=== PATIENT | male | born 1970 | race Caucasian/White ===

== ENCOUNTER 2018-10-22 08:41 | Outpatient (CLI) | payer OTHER, SELFPAY ==
[2018-10-22 09:06] LABS: HCT 50.3 % (40.0-50.0); HGB 17.3 g/dL (13.5-17.5); Mean Corp. HGB Concentration 34.4 g/dL (32.0-36.0); Mean Corpuscular Hemoglobin 30.8 pg (27.0-33.0); Mean Corpuscular Volume 89.7 fL (80-95); Mean Platelet Volume 9.2 fL (8.0-11.0); Platelet Count 255 x1000/uL (130-400); RBC 5.61 m/cumm (4.50-6.00); White Blood Cell Count 7.49 k/cumm (4.4-10.8)
[2018-10-22 09:51] LABS: ALT 61 U/L (12-78); AST 31 U/L (15-37); Albumin 4.1 g/dL (3.4-5.0); Alkaline Phosphatase 99 U/L (46-116); Anion Gap 9.4 mmol/L (3-11); BUN 10 mg/dL (7-18); Bilirubin, Total 0.5 mg/dL (0.2-1.0); CO2 27.6 mmol/L (21.0-32.0); CREATININE 0.94 mg/dL (0.70-1.30); Calcium 9.5 mg/dL (8.5-10.1); Chloride 102 mmol/L (98-107); Cholesterol 251 mg/dL (50-200); Glucose 117 mg/dL (70-100); HDL Cholesterol 48 mg/dL (40-60); LDL CHOLESTEROL 183 mg/dL (<100); Potassium 4.6 mmol/L (3.5-5.1); Sodium 139 mmol/L (136-145); Total Protein 8.3 g/dL (6.4-8.2); Triglyceride 154 mg/dL (30-150)
== END 2018-10-22 09:01 ==
PROVIDERS: PCP Nurse Practitioner; Visit Provider Nurse Practitioner
DX: E66.9 Obesity, unspecified (principal); R03.0 Elevated blood-pressure reading, without diagnosis of hypertension; Z00.00 Encounter for general adult medical examination without abnormal findings
CPT/HCPCS: 36415; 80053; 80061; 83721; 85027

== ENCOUNTER 2019-12-08 04:27 | Outpatient (CLI) | payer OTHER, SELFPAY ==
[2019-12-08 17:25] LABS: Calculated LDL 169 mg/dL (<100); Cholesterol 237 mg/dL (<200); HDL Cholesterol 43 mg/dL (40-60); Triglyceride 125 mg/dL (<150)
== END 2019-12-08 04:47 ==
PROVIDERS: PCP Nurse Practitioner; Visit Provider Nurse Practitioner
DX: E78.00 Pure hypercholesterolemia, unspecified (principal)
CPT/HCPCS: 36415; 80061

== ENCOUNTER 2020-10-01 03:32 | Outpatient (CLI) | payer BC, SELFPAY ==
[2020-10-02 14:17] LABS: COVID-19 RT-PCR UVMMC Result Negative (Negative)
== END 2020-10-01 03:33 | disposition home or self-care (01) ==
LOC: LBO 03:32
PROVIDERS: PCP Nurse Practitioner; Visit Provider Nurse Practitioner
DX: Z20.828 Contact with and (suspected) exposure to other viral communicable diseases (principal)
CPT/HCPCS: U0003

== ENCOUNTER 2021-05-30 02:35 | Outpatient (CLI) | payer BC, SELFPAY ==
[2021-05-30 09:36] LABS: HCT 46.7 % (40.0-50.0); HGB 15.8 g/dL (13.5-17.5); MCH 30.7 pg (27.0-33.0); MCHC 33.8 % (32.0-36.0); MCV 90.9 fL (80-95); Platelet Count 247 10^3/uL (130-400); RBC 5.14 10^6/uL (4.36-5.78); RDW 11.5 % (11.8-14.1); RDW-SD 38.6 fL; WBC 6.63 10^3/uL (4.4-10.8)
[2021-05-30 10:32] LABS: ALT 51 U/L (16-63); AST 23 U/L (15-37); Alkaline Phosphatase 90 U/L (46-116); Anion Gap 10.7 mmol/L (3-11); BUN 13 mg/dL (7-18); Bilirubin, Total 0.4 mg/dL (0.2-1.0); CO2 25.3 mmol/L (21.0-32.0); CREATININE 0.7 mg/dL (0.70-1.30); Calculated LDL 171 mg/dL (<100); Chloride 103 mmol/L (98-107); Cholesterol 237 mg/dL (<200); Glucose 115 mg/dL (74-106); HDL Cholesterol 43 mg/dL (40-60); Potassium 4.4 mmol/L (3.5-5.1); Sodium 139 mmol/L (136-145); Total Protein 7.7 g/dL (6.4-8.2); Triglyceride 116 mg/dL (<150)
[2021-05-30 10:48] LABS: Hemoglobin A1C 5.7 % (<5.7)
[2021-05-31 13:22] LABS: HIV-1/2 Ag & Ab Screen Negative (Negative); Hepatitis C Ab w Rflx HCV PCR Negative (Negative)
== END 2021-05-30 02:36 | disposition home or self-care (01) ==
LOC: LBO 02:35
PROVIDERS: PCP Nurse Practitioner; Visit Provider Nurse Practitioner
DX: E66.9 Obesity, unspecified (principal); E78.00 Pure hypercholesterolemia, unspecified; I10 Essential (primary) hypertension; R73.01 Impaired fasting glucose; Z11.59 Encounter for screening for other viral diseases; E11.9 Type 2 diabetes mellitus without complications; Z11.4 Encounter for screening for human immunodeficiency virus [HIV]
CPT/HCPCS: 36415; 80053; 80061; 85027; 86803; 87389; 83036

== ENCOUNTER 2021-12-20 02:46 | Outpatient (CLI) | payer BC, SELFPAY ==
--- OUTSIDE RECORDS SUMMARY | 2021-12-20 02:49 | XMS_ITS | Encounter Summary ---
:1970 Demographics Home Phone Preferred Language Unknown Marital Status Unknown Confucianism Affiliation Unknown Race Unknown Ethnic Group Unknown Author Organization Address [address] [place] [address] Care Team Providers Name Role Phone Unavailable Primary Care Provider Unavailable Encounter Details Date Type Department Care Team Description 05/30/2021 Lab Requisition [facility] Outr Resulting Lab, Pathology & Laboratory Provider [facility] [address] [place] [address] Social History Tobacco Use Types Packs/Day Years Used Date Never Assessed Sex Assigned at Date Recorded Not on file documented as of this encounter Plan of Treatment Not on filedocumented as of this encounter Procedures Procedure Name Priority Date/Time Associated Diagnosis Comme nts HEPATITIS C AB W Routine 05/30/2021 9:29 EST Resu lts for this REFLEX TO HCV RNA procedure are in BY PCR the results section. documented in this encounter Results HEPATITIS C AB W REFLEX TO HCV RNA BY PCR (05/30/2021 9:29 EST) Pathologist Sig nature Hep C Antibody Negative Negative [facility] Specimen Blood - Venous blood (substance) Performing Organization Address City/State/ZIP Code Phon e Number [facility] [address] [place] [address] SERVICES documented in this encounter Visit Diagnoses Not on filedocumented in this encounter
--- OUTSIDE RECORDS SUMMARY | 2021-12-20 02:49 | XMS_ITS | Encounter Summary ---
:1970 Demographics Home Phone Preferred Language Unknown Marital Status Unknown Hoahaoism Affiliation Unknown Race Unknown Ethnic Group Unknown Author Organization [facility] Address [address] [place] [address] Care Team Providers Name Role Phone Unavailable Primary Care Provider Unavailable Encounter Details Date Type Department Care Team Description 10/01/2020 Lab Requisition [facility] Outr Resulting Lab, Pathology & Laboratory Provider [facility] [address] [place] [address] Social History Tobacco Use Types Packs/Day Years Used Date Never Assessed Sex Assigned at Date Recorded Not on file documented as of this encounter Plan of Treatment Not on filedocumented as of this encounter Procedures Procedure Name Priority Date/Time Associated Diagnosis Comme nts COVID-19 TEST [facility] Today 10/01/2020 9:18 EDT LAB PCR COVID-19 TESTING Routine 10/01/2020 9:18 EDT Resu lts for this procedure are i n the results section. documented in this encounter Results COVID-19 TEST [facility] LAB PCR (10/01/2020 9:18 EDT) Specimen Swab - Entire nasopharynx (body structur e) Performing Organization Address City/State/ZIP Code Phon e Number [facility] [address] [place] [address] SERVICES COVID-19 TESTING (10/01/2020 9:18 EDT) COVID-19 rt-PCR Negative Negative [facility] Result Comment: [facility] This test has not been FDA c leared or approved. This test has been authorized by FDA under an EUA for use by authorized laboratories. This test has been authorized only for detection of nucleic acid fro SERVICES m 2019-nCoV, not for any oth er viruses or pathogens. This test is only authorized for the duration of the declaration that circumstances exist justifying the authorization of emergency use of in vitro d iagnostic tests for detectio n and/or diagnosis of 2019-nCoV under section 564(b)(1) of Act, 21 U.S.C ?? 360bbb-3(b) (1), unless the authorization is terminated or revoked sooner. Negative results do not prec lude 2019-nCoV infection and should not be used as the sole basis for treatment or other patient management decisions. Negative results must be combined with clinical observa tions, patient history, and epidemiological informatio n. Testing was performed using the margareth SARS-CoV-2 assay ([employer] on the Margareth 6800 System Performing Lab [facility] [address] [facility] Lab [facility] SERVICES Specimen Swab Performing Organization Address City/State/ZIP Code Phon e Number [facility] [address] [place] [address] SERVICES documented in this encounter Visit Diagnoses Not on filedocumented in this encounter
--- OUTSIDE RECORDS SUMMARY | 2021-12-20 02:49 | XMS_ITS | Clinical Summary ---
:1970 Demographics Home Phone Preferred Language Unknown Marital Status Unknown Hindu Affiliation Unknown Race Unknown Ethnic Group Unknown Author Organization [facility] Address [address] [place] [address] Care Team Providers Name Role Phone Unavailable Primary Care Provider Unavailable Social History Tobacco Use Types Packs/Day Years Used Date Never Assessed Sex Assigned at Date Recorded Not on file Plan of Treatment Health Maintenance Due Date Last Done Comments COVID-19 Vaccine (1) 1975 Hepatitis C Screen Completed 05/30/2021
[2021-12-20 08:11] LABS: Hemoglobin A1C 5.9 % (<5.7)
[2021-12-20 09:04] LABS: ALT 62 U/L (16-63); AST 40 U/L (15-37); Albumin 3.9 g/dL (3.4-5.0); Alkaline Phosphatase 81 U/L (46-116); Anion Gap 7.2 mmol/L (3-11); BUN 11 mg/dL (7-18); Bilirubin, Total 0.6 mg/dL (0.2-1.0); CO2 29.8 mmol/L (21.0-32.0); CREATININE 0.8 mg/dL (0.70-1.30); Calculated LDL 176 mg/dL (<100); Chloride 103 mmol/L (98-107); Cholesterol 257 mg/dL (<200); Glucose 124 mg/dL (74-106); HDL Cholesterol 44 mg/dL (40-60); Potassium 4.6 mmol/L (3.5-5.1); Sodium 140 mmol/L (136-145); Triglyceride 185 mg/dL (<150)
== END 2021-12-20 02:47 | disposition home or self-care (01) ==
LOC: LBO 02:47
PROVIDERS: PCP Nurse Practitioner; Visit Provider Nurse Practitioner
DX: E78.00 Pure hypercholesterolemia, unspecified (principal); I10 Essential (primary) hypertension; R73.01 Impaired fasting glucose
CPT/HCPCS: 36415; 80053; 80061; 83036

== ENCOUNTER 2022-03-20 16:55 | Outpatient (REF) | payer BC, SELFPAY | END 2022-03-20 16:56 | disposition home or self-care (01) | LOC: LBN 16:55 | PROVIDERS: PCP Nurse Practitioner; Visit Provider Surgery | DX: L08.9 Local infection of the skin and subcutaneous tissue, unspecified; L72.3 Sebaceous cyst | CPT/HCPCS: 87070; 87205 ==

== ENCOUNTER 2022-07-03 04:05 | Outpatient (CLI) | payer BC, SELFPAY ==
[2022-07-03 09:29] LABS: Calculated LDL 127 mg/dL (<100); Cholesterol 196 mg/dL (<200); HDL Cholesterol 49 mg/dL (40-60); Triglyceride 103 mg/dL (<150)
== END 2022-07-03 04:06 | disposition home or self-care (01) ==
LOC: LBO 04:05
PROVIDERS: PCP Nurse Practitioner; Visit Provider Nurse Practitioner
DX: E78.00 Pure hypercholesterolemia, unspecified (principal)
CPT/HCPCS: 36415; 80061

== ENCOUNTER 2023-07-10 09:29 | Day surgery (SDC) | payer BC, SELFPAY ==
--- NOTE | 2023-07-06 15:44 | PDOC.DSDIS_ITS ---
Discharge Plan Disposition Patient Disposition: Home Condition: Good Discharge Details Reason For Visit: colon scope Attending Provider: Emily Copeland Primary Care Provider: Cee Madison Home Meds and New Rx's Prescriptions: Continued atorvastatin 20 mg tablet 20 mg PO QPM Qty: 90 3RF ibuprofen 600 mg tablet 600 mg PO QID PRN (Reason: pain) Rx Instructions: [facility] dated 10/04/19 [facility] acetaminophen 500 mg tablet 1,000 mg PO Q6H PRN Rx Instructions: Per [place] [facility] visit 10/04/19 [facility] Discontinued bisacodyl [Dulcolax (bisacodyl)] 5 mg tablet,delayed release (DR/EC) 5 mg PO ONCE Qty: 4 0RF Rx Instructions: Colonoscopy Bowel Prep- Per Instructions polyethylene glycol 3350 17 gram/dose powder 238 g PO ONCE Qty: 238 0RF Rx Instructions: Colonoscopy Bowel Prep- Per Instructions Discharge Instructions Additional Instructions: DSU Colonoscopy Post- Op Instructions Instructions for Everyone who is given Anesthesia: For your safety, please do the following for the next twenty-four (24) hours: *Do Not operate a motor vehicle (car, truck, motorcycle, etc.) *Do Not drink alcoholic beverages or use any recreational drugs for the first 24 hours or while taking pain medications. The medications in your body may have a reaction that can be dangerous. *Do Not make any important decisions or sign any important papers. Findings: Follow up: 1. No lifting over 20 pounds or strenuous activity for the first 24 hours after your procedure. After 24 hours there are no restrictions on your activity but you may feel fatigued for a few days. 2. After you arrive home you may have a light meal and return to your normal diet as you can tolerate it without feeling sick to your stomach. 3. You may have a bloated, gaseous feeling in your belly (abdomen) after a colonoscopy. Passing gas and belching will help. Walking or lying down on your left side with your knees flexed may relieve the discomfort. Call the office at [phone] (Office) or [phone] (Hospital) right away if you notice any of the following: a.Vomiting of blood or ?coffee ground stools?. b.Rectal bleeding 1Tbsp, blood clots or continuous bleeding. c.Severe belly (abdominal) pain. d.A hard distended belly (abdomen) and an inability to pass gas. 4. Please don?t expect to have a normal BM (bowel movement) for 2-3 days after your procedure. 5. If there are questions regarding the findings of your procedure, please contact your doctor 6. If you are unable to contact your doctor with a problem, contact the hospital at [phone]. 7. Continue all your regular medications unless directed otherwise. I understand the above instructions and have no questions. Signature of Patient or Adult Escort Name of Responsible Adult Escort Signature of Nurse Date/Time Activity:: see above Diet:: see above Discharge Orders Discharge Orders: Discharge Order (Routine); Ordered 07/10/23 Ordered By: Emily Copeland DS: Diagnosis Discharge Diagnosis (1) Pre-diabetes: Status: Acute (2) Soft tissue abscess: Status: Acute (3) Infected sebaceous cyst of skin: Status: Acute (4) Diverticulitis: Status: Chronic (5) IFG (impaired fasting glucose): Status: Chronic (6) Elevated cholesterol: Status: Chronic (7) HTN (hypertension): Status: Chronic (8) Obesity: Status: Chronic (9) Screening for malignant neoplasm of colon performed: Status: Acute Asessment and Plan: The patient is seen and examined after their colonoscopy.? The patient has been able to pass gas.? They are not having abdominal pain.? They have been able to tolerate liquids and a snack.? They do not have any nausea or vomiting.? They are not having any chest pain or shortness of breath.??? They are not having any rectal bleeding. Their vital signs have been stable-see nursing notes. We discussed findings during their colonoscopy, and any biopsies that were done/polyps that were removed. The patient will be sent a letter with any biopsy results, and when to repeat the colonoscopy.-see discharge instructions. Patient was given explicit instructions to follow-up regarding colonoscopy-refer to discharge instructions.? We reviewed resumption of medications. Patient verbalized understanding and discharged in stable and satisfactory condition- See nursing notes.
--- NOTE | 2023-07-09 10:21 | PDOC.DSDIS_ITS ---
Date of service: 07/10/23 Time of Service: 11:25 Discharge Plan Disposition Patient Disposition: Home Condition: Good Discharge Details Reason For Visit: colon scope Attending Provider: Emily Copeland Primary Care Provider: Cee Madison Home Meds and New Rx's Prescriptions: Continued atorvastatin 20 mg tablet 20 mg PO QPM Qty: 90 3RF ibuprofen 600 mg tablet 600 mg PO QID PRN (Reason: pain) Rx Instructions: [facility] dated 10/04/19 [facility] acetaminophen 500 mg tablet 1,000 mg PO Q6H PRN Rx Instructions: Per [facility] ER visit 10/04/19 [facility]gc Discontinued bisacodyl [Dulcolax (bisacodyl)] 5 mg tablet,delayed release (DR/EC) 5 mg PO ONCE Qty: 4 0RF Rx Instructions: Colonoscopy Bowel Prep- Per Instructions polyethylene glycol 3350 17 gram/dose powder 238 g PO ONCE Qty: 238 0RF Rx Instructions: Colonoscopy Bowel Prep- Per Instructions Discharge Instructions Additional Instructions: DSU Colonoscopy Post- Op Instructions Instructions for Everyone who is given Anesthesia: For your safety, please do the following for the next twenty-four (24) hours: *Do Not operate a motor vehicle (car, truck, motorcycle, etc.) *Do Not drink alcoholic beverages or use any recreational drugs for the first 24 hours or while taking pain medications. The medications in your body may have a reaction that can be dangerous. *Do Not make any important decisions or sign any important papers. Findings: -polyps:these are very small. My office will send you a letter in 2 to 3 weeks time with the results of the biopsy and when we want you to repeat the colonoscopy again, most likely 7 years time. -Diverticula: Make sure you are moving your bowels on a regular basis and you are not straining. If you are find you are having issues with constipation/straining, then it is recommended you start a daily fiber supplement such as Metamucil. 1. No lifting over 20 pounds or strenuous activity for the first 24 hours after your procedure. After 24 hours there are no restrictions on your activity but you may feel fatigued for a few days. 2. After you arrive home you may have a light meal and return to your normal diet as you can tolerate it without feeling sick to your stomach. 3. You may have a bloated, gaseous feeling in your belly (abdomen) after a colonoscopy. Passing gas and belching will help. Walking or lying down on your left side with your knees flexed may relieve the discomfort. Call the office at [phone] (Office) or [phone] (Hospital) right away if you notice any of the following: a.Vomiting of blood or ?coffee ground stools?. b.Rectal bleeding 1Tbsp, blood clots or continuous bleeding. c.Severe belly (abdominal) pain. d.A hard distended belly (abdomen) and an inability to pass gas. 4. Please don?t expect to have a normal BM (bowel movement) for 2-3 days after your procedure. 5. If there are questions regarding the findings of your procedure, please contact your doctor 6. If you are unable to contact your doctor with a problem, contact the hospital at [phone]. 7. Continue all your regular medications unless directed otherwise. I understand the above instructions and have no questions. Signature of Patient or Adult Escort Name of Responsible Adult Escort Signature of Nurse Date/Time Activity:: see above Diet:: see above Discharge Orders Discharge Orders: Discharge Order (Routine); Ordered 07/10/23 Ordered By: Emily Copeland DS: Diagnosis Discharge Diagnosis (1) Pre-diabetes: Status: Acute (2) Soft tissue abscess: Status: Acute (3) Infected sebaceous cyst of skin: Status: Acute (4) IFG (impaired fasting glucose): Status: Chronic (5) Elevated cholesterol: Status: Chronic (6) HTN (hypertension): Status: Chronic (7) Obesity: Status: Chronic (8) Screening for malignant neoplasm of colon performed: Status: Acute Asessment and Plan: The patient is seen and examined after their colonoscopy.? The patient has been able to pass gas.? They are not having abdominal pain.? They have been able to tolerate liquids and a snack.? They do not have any nausea or vomiting.? They are not having any chest pain or shortness of breath.??? They are not having any rectal bleeding. Their vital signs have been stable-see nursing notes. We discussed findings during their colonoscopy, and any biopsies that were done/polyps that were removed. The patient will be sent a letter with any biopsy results, and when to repeat the colonoscopy.-see discharge instructions. Patient was given explicit instructions to follow-up regarding colonoscopy-refer to discharge instructions.? We reviewed resumption of medications. Patient verbalized understanding and discharged in stable and satisfactory condition- See nursing notes. (9) Diverticula of colon: Status: Acute (10) Colon polyp: Status: Acute
--- NOTE | 2023-07-09 10:22 | W.COLOREPORT ---
Date of service: 07/10/23 Time of Service: 11:11 Colonoscopy Report Date of procedure: 07/10/23 Pre-op diagnosis general: CRC screen Post-op diagnosis procedure note: other (Diverticula and polyps) Surgeon: Emily Copeland Anesthesia Type: General LMA/ETT Estimated blood loss (mL): 1 Pathology: other Complications: None Disposition: same day Prep: Miralax/Dulcolax Retraction Time: 12 Procedure Description: After informed consent was obtained the patient was taken to the procedure room and placed in a left decubitous position. Monitors were applied and a time out was done. The patients name, date of , procedure, allergies to medications and metal in their body was reviewed. The patient was then sedated. Once sedated and comfortable a rectal exam was done. External exam was normal. Internal exam revealed a normal sphincter tone and no palpable masses. The prostate-without masses. The scope was then introduced and retrofelexed. No internal hemorrhoids were identified. The scope was then advanced to the cecum without difficulty. The TI and appendiceal orifice were identified. The prep was BBPS 2 in all 3 segments for a total of 6. The scope was then slowly retracted over 12 minutes back into the rectum. We removed 2 polyps today. He had a flat .5 cm polyp at 50 cm. This is removed with a cold biopsy forcep. He had a flat 0.5 cm polyp in the rectum, that is removed with a cold biopsy forcep. He has a few small scattered diverticula in the sigmoid colon. There is no signs of active bleeding or infection. The mucosa is pink and healthy with a normal vascular pattern. All specimens are retrieved and no bleeding is noted the scope was removed and the patient was woken up and taken back to Same day surgery in stable condition. The patient tolerated the procedure well and there were no immediate complications. Follow up: The patient should follow up in ~7 years, pathology pending, unless they develop changes in bowel habits or other new gastrointestinal complaints.
[2023-07-10 09:53] VITALS: BP 163/83; PULSE 92; RESP 16; TEMP 36.7; O2SAT 98
[2023-07-10] MEDS: Lactated Ringers 1,000 ML 80 ML IV (09:55)
--- NOTE | 2023-07-10 10:32 | W.ANESPRE ---
General Info Date of Service Date Performed: 07/10/23 Height: 5 ft 5 in Weight: 100.1 kg Body Mass Index (BMI): 36.7 Surgical Procedure: Operation Date: 07/10/23 10:35 Proposed Procedure Side Surgeon leta Copeland, DO Meds Allergies and Home Medications Allergies Allergy/AdvReac Type Severity Reaction Status Date / Time No Known Drug Allergies Allergy Verified 07/10/23 09:41 Home Medication Medication Instructions Recorded acetaminophen 500 mg tablet 1,000 mg PO Q6H PRN 10/05/19 ibuprofen 600 mg tablet 600 mg PO QID PRN pain 10/05/19 atorvastatin 20 mg tablet 20 mg PO QPM #90 tabs 06/30/22 Current Visit Medications: Current Medications Generic Name Dose Route Start Last Admin Trade Name Freq PRN Reason Stop Dose Admin Hyoscyamine Sulfate 0.125 mg 07/10/23 03:42 Hyoscyamine 0.125 Mg Sl/Oral/Chew SL 08/09/23 03:41 DIRECTED PRN Ringer's Solution 1,000 mls @ 80 mls/hr 07/10/23 06:00 07/10/23 09:55 IV 07/10/23 23:59 80 mls/hr INFUSION SHIRLEY Administration IV Miscellaneous Supplies 1 each 07/10/23 06:00 Iv Access IV 07/10/23 23:59 DIRECTED SHIRLEY Ondansetron HCl 4 mg 07/10/23 03:42 Ondansetron 4 Mg/2 Ml Vial IVP 08/09/23 03:41 Q4H PRN PRN Nausea / Vomiting Sodium Chloride 0 ml 07/10/23 06:00 Normal Saline Flush 10 Ml Syr IV 07/10/23 23:59 PRN PRN Sodium Chloride 0 ml 07/10/23 06:00 Normal Saline 10 Ml Vial IJ 07/10/23 23:59 DIRECTED PRN Sterile Water 0 ml 07/10/23 06:00 Water,Injection,Sterile 10 Ml Vial IJ 07/10/23 23:59 DIRECTED PRN PFSH Active Problems Active Problems: Problem Status Onset Code Screening for malignant neoplasm of colon performed Z12. Screening for malignant neoplasm of colon performed Z12.11 Pre-diabetes R73.03 Soft tissue abscess L02.91 Infected sebaceous cyst of skin L72.3, L08.9 Diverticulitis K57.92 IFG (impaired fasting glucose) R73.01 Elevated cholesterol E78.00 HTN (hypertension) I10 Obesity E66.9 Surgical History Surgical History left lower leg fracture (06/22/91) Appendectomy (06/22/82) Tobacco Smoking/Tobacco Use Status: Former Tobacco Use Alcohol Alcohol Intake: never Substance Use Substance use type: does not use Vital Signs and Lab Results Vital Signs Most Recent Vital Signs in EMR: Most Recent Vital Signs Temp Pulse Resp BP Pulse Ox 36.7 C 92 H 16 163/83 H 98 07/10/23 09:53 07/10/23 09:53 07/10/23 09:53 07/10/23 09:53 07/10/23 09:53 Lab Results Blood Type / Crossmatch: No Data to Display Complete Blood Count: No Data to Display Complete Metabolic Panel: No Data to Display Liver Function Panel: No Data to Display Coagulation Panel: No Data to Display Cardiac Panel: No Data to Display Arterial Blood Gas: No Data to Display Venous Blood Gas: No Data to Display Pancreas Panel: No Data to Display Thyroid Panel: No Data to Display Infectious Disease: No Data to Display Blood Cultures: No Data to Display Toxicology Panel: No Data to Display Anesthesia Assessment and Plan Anesthesia History Personal History: No History of Anesthesia Complications Family History: No Family History of Anesthesia Complications Exercise Tolerance Exercise Tolerance: Metabolic Equivalents>4 Pertinent Negatives Pertinent Negatives: No Symptoms of GERD Cardiac & Pulmonary Exam Cardiac Exam: Normal S1/S2 Heart Sounds Pulmonary Exam: Clear Bilateral Breath Sounds Implantable Cardiac Device Does patient have a Pacemaker or an ICD?: No Airway Exam Known Difficult Airway: No Mallampati Class: 2 Mouth Opening: Normal (> 3cm) Thyromental Distance: Greater than 3 cm Neck Range of Motion: Full ROM Neck Circumference: Normal Teeth Condition: Normal Dentition ASA Classification ASA Score: ASA 2 Emergency Case?: No NPO Status NPO Status: NPO Clears >2 hours, Solids >8 hours Anesthesia Plan Resuscitation Status: Full Code Anesthesia Technique: General Anesthesia Airway Planned: Natural Airway Monitors Used: Standard Monitors
[2023-07-10 10:33] VITALS: BMI 36.7
--- NOTE | 2023-07-10 10:50 | BOWEL_PTH ---
PATIENT: [place] Moreno LOC: [facility] U#:[id number] AGE/SX: 52/M ROOM: RE07/10/[address]: Emily Copeland : 1970 BED: DIS: 07/10/2023 SPEC #: [id number] RECD: 07/10/23 12:58 STATUS: [facility] REQ #: [id number] PAZ: 07/10/23 10:[address]: Emily Copeland DEPT: Surgical Specimen RECD BY: Marina Kelly ENTERED: 07/10/23 13:00 SP TYPE: Bowel OTHR DR: Cee Madison APRN Tissues: 1 - BIOPSY BOWEL 2 - BIOPSY BOWEL Procedures: GROSS AND MICRO LEVEL 4 Comments: [id number]
[2023-07-10 11:00] VITALS: BP 134/78; PULSE 83; RESP 18; TEMP 36.4; O2SAT 95
--- NOTE | 2023-07-10 11:10 | W.ANESPOSTOP ---
Postoperative Evaluation Date, Time and Location Date Performed: 07/10/23 Time Performed: 11:11 Patient Location: Day Surgery Unit Vital Signs Most Recent Imported Vital Signs: Most Recent Vital Signs Temp Pulse Resp BP Pulse Ox 36.7 C 92 H 16 163/83 H 98 07/10/23 09:53 07/10/23 09:53 07/10/23 09:53 07/10/23 09:53 07/10/23 09:53 Pain Score Most Recent Pain Score: Most Recent Pain Score Pain Level 0 07/10/23 09:53 Assessment Mental Status: Awake (Alert & Oriented to Patient Baseline) Airway and Respiratory Function: Patent airway with normal (patient baseline) respiratory exam Cardiovascular Function: Hemodynamically Stable Hydration Status: Adequately Hydrated Nausea & Vomiting: No Nausea or Vomiting Pain: Pt. Denies Any Pain Peripheral Nerve Block: Patient did not receive a nerve block
[2023-07-10 11:35] VITALS: BP 140/86; PULSE 74; RESP 17; TEMP 36.4; O2SAT 97
== END 2023-07-10 12:00 | disposition home or self-care (01) ==
LOC: SUR 09:29
PROVIDERS: PCP Nurse Practitioner; Visit Provider Surgery
PROC: 0DJD8ZZ Inspection of Lower Intestinal Tract, Via Natural or Artificial Opening Endoscopic (ICD-10-PCS; CPT 45378; principal; 2023-07-10 10:30)
DX: Z12.11 Encounter for screening for malignant neoplasm of colon; K63.5 Polyp of colon; K57.30 Diverticulosis of large intestine without perforation or abscess without bleeding; I10 Essential (primary) hypertension; E66.9 Obesity, unspecified; K63.89 Other specified diseases of intestine
CPT/HCPCS: 45380; 88305; J2704

== ENCOUNTER 2024-02-16 02:59 | Outpatient (CLI) | payer BC, SELFPAY ==
[2024-02-16 08:18] LABS: Abs Immature Grans 0.03 10^3/uL (0.0-0.06); Absolute Basophil Count 0.09 10^3/uL (0.0-0.2); Absolute Eosinophil Count 0.53 10^3/uL (0.0-0.7); Absolute Lymphocyte Count 2.74 10^3/uL (1.2-3.4); Absolute Monocyte Count 0.73 10^3/uL (0.1-0.8); Absolute Neutrophil Count 4.62 10^3/uL (1.2-6.7); Eosinophils % 6.1 %; HCT 45.9 % (40.0-50.0); Immature Grans % 0.3 %; Lymphocytes % 31.4 %; MCH 31.9 pg (27.0-33.0); MCHC 34.9 % (32.0-36.0); MCV 91 fL (80-95); Monocytes % 8.4 %; Neutrophils % 52.8 %; Platelet Count 235 10^3/uL (130-400); RBC 5.02 10^6/uL (4.36-5.78); RDW 11.7 % (11.8-14.1); RDW-SD 38.7 fL; WBC 8.74 10^3/uL (4.4-10.8)
[2024-02-16 08:35] LABS: ALT 54 U/L (16-63); AST 28 U/L (15-37); Albumin 4.2 g/dL (3.4-5.0); Alkaline Phosphatase 84 U/L (46-116); BUN 9 mg/dL (7-18); Bilirubin, Total 0.66 mg/dL (0.2-1.0); CREATININE 0.9 mg/dL (0.70-1.30); Calcium 9.3 mg/dL (8.5-10.1); Calculated LDL 69 mg/dL (<100); Chloride 104 mmol/L (98-107); Cholesterol 147 mg/dL (<200); Estimated GFR 102.76 (mL/min/1.73m2); Glucose 128 mg/dL (74-106); HDL Cholesterol 51 mg/dL (40-60); Potassium 4.3 mmol/L (3.5-5.1); Sodium 141 mmol/L (136-145); Total Protein 8.1 g/dL (6.4-8.2); Triglyceride 135 mg/dL (<150)
[2024-02-16 10:06] LABS: Hemoglobin A1C 5.7 % (<5.7)
== END 2024-02-16 03:00 | disposition home or self-care (01) ==
LOC: LBO 02:59
PROVIDERS: PCP Nurse Practitioner; Referring Provider Nurse Practitioner; Visit Provider Nurse Practitioner
DX: E66.9 Obesity, unspecified (principal); E78.00 Pure hypercholesterolemia, unspecified; R73.03 Prediabetes
CPT/HCPCS: 36415; 80053; 80061; 83036; 85025

== ENCOUNTER 2025-03-30 04:10 | Outpatient (CLI) | payer OTHER, SELFPAY ==
[2025-03-30 08:03] LABS: Anion Gap 8.4 mmol/L (3-11); BUN 11 mg/dL (7-18); CO2 29.6 mmol/L (21.0-32.0); Calcium 9.5 mg/dL (8.5-10.1); Calculated LDL 86 mg/dL (<100); Chloride 103 mmol/L (98-107); Cholesterol 165 mg/dL (<200); Estimated GFR 105.82 (mL/min/1.73m2); Glucose 143 mg/dL (74-106); HDL Cholesterol 46 mg/dL (>or=40); Hemoglobin A1C 5.9 % (<5.7); Potassium 5.2 mmol/L (3.5-5.1); Sodium 141 mmol/L (136-145); Triglyceride 169 mg/dL (<150)
[2025-03-30 19:30] LABS: PSA, Screening 1.0 ng/mL (<=3.5)
== END 2025-03-30 04:11 | disposition home or self-care (01) ==
DX: I10 Essential (primary) hypertension (principal); E78.00 Pure hypercholesterolemia, unspecified; R73.03 Prediabetes; E66.9 Obesity, unspecified; Z12.5 Encounter for screening for malignant neoplasm of prostate
CPT/HCPCS: 36415; 80048; 80061; 84153; 83036